=== PATIENT | female | born 1935 | race Caucasian/White ===

== ENCOUNTER 2017-01-01 22:17 | Emergency (ER) | payer MEDICARE, OTHER ==
[~2017-01-01] VITALS: Ht 160 cm; Wt 66.8 kg
[~2017-01-01 22:17] MED LIST: AMIT75TA2 PO; ASPI-973 PO; ATEN25TA PO; CHOL100045 PO; FURO40TA4 PO; GUAN1TAB16 PO; LANS30CA15 PO; LEVO125T6 PO; LEVO137T18 PO; LORA-302 PO; PRAV40TA PO; URSO300C8 PO
[2017-01-01 22:39] VITALS: BP 163/97; PULSE 94; RESP 20; O2SAT 97
--- NOTE | 2017-01-01 23:41 | ED.REPORT ---
HPI-General Illness Date of Service Jan 01, 2017 ED Provider: Duc Osuna MD An 81 year old female with a history of hypertension, hyperlipidemia and aortic aneurysm presents to the ED complaining of hypertension. The pt's hypertension medications were recently changed from Atenolol to Metoprolol, and now her blood pressures are higher than usual. She has been measuring these blood pressures regularly. The pt denies headache, shortness of breath, chest pain or other physical symptoms. Nursing Notes Stated Complaint: ELEVATED BLOOD PRESSURE Chief Complaint: General Complaint Nursing Notes Reviewed: Yes Allergies: Coded Allergies: donepezil (Verified Allergy, Severe, ANGIOEDEMA,DIARRHEA,BLISTERS,VESICLES , 01/01/17) lisinopril (Verified Allergy, Severe, Itching, 01/01/17) amoxicillin (Verified Allergy, Intermediate, itching, 01/01/17) opium (anthroposophic) (Verified Allergy, Intermediate, itching, 01/01/17) oxycodone (Verified Allergy, Intermediate, itching, 01/01/17) Bisphosphonates (Verified Allergy, Mild, ITCHING, 01/01/17) bupropion HCl (Verified Allergy, Mild, ITCHING, 01/01/17) Sulfa (Sulfonamide Antibiotics) (Verified Allergy, Unknown, UNKNOWN, ) buspirone (Verified Allergy, Unknown, ITCHING, 01/01/17) clonazepam (Verified Allergy, Unknown, UNKNOWN, 01/01/17) guaifenesin (Verified Allergy, Unknown, unknown, 01/01/17) piroxicam (Verified Allergy, Unknown, UNKNOWN, 01/01/17) Cephalexin Monohydrate (Verified Adverse Reaction, Severe, VOMITING, DIARRHEA, 01/01/17) alendronate sodium (Verified Adverse Reaction, Severe, ARTHRALGIAS, ) alprazolam (Verified Adverse Reaction, Severe, NO ALLERGY-MED INEFFECTIVE , 01/01/17) amlodipine (Verified Adverse Reaction, Severe, ITCHING, 01/01/17) atorvastatin (Verified Adverse Reaction, Severe, ABNL LFT'S, 01/01/17) diltiazem (Verified Adverse Reaction, Severe, INCREASED HR, 01/01/17) doxycycline (Verified Adverse Reaction, Severe, ITCHING, 01/01/17) ibuprofen (Verified Adverse Reaction, Severe, ITCHING, 01/01/17) nifedipine (Verified Adverse Reaction, Severe, INCREASED HR, 01/01/17) opium poppy (Verified Adverse Reaction, Severe, ITCHING W/OPIATES, 01/01/17 ) red dye (Verified Adverse Reaction, Severe, NO. 40 ITCHING, 01/01/17) verapamil (Verified Adverse Reaction, Severe, FATIGUE, 01/01/17) Uncoded Allergies: VITAMIN B COMPLEX (Adverse Reaction, Severe, ITCHING, 12/27/15) Scheduled Amitriptyline (Amitriptyline) 75 Mg Tablet 112.5 MG PO HS Aspirin (Aspirin) 81 Mg Tablet 81 MG PO DAILY Atenolol (Atenolol) 25 Mg Tablet 25 MG PO HS Cholecalciferol (Vitamin D3) (Vitamin D) 1,000 Unit Capsule 2,000 UNIT PO BID Furosemide (Furosemide) 40 Mg Tablet 20-40 MG PO DAILY Guanfacine HCl (Tenex) 1 Mg Tablet 0.5 MG PO HS Lansoprazole DR (Prevacid) 30 Mg Capsule 15 MG PO DAILY Levothyroxine (Levoxyl) 137 Mcg Tablet 137 MCG PO ,,,EBCK Levothyroxine (Levothyroxine) 125 Mcg Tablet 125 MCG PO ,, Pravastatin (Pravastatin) 40 Mg Tablet 40 MG PO DAILY Ursodiol (Actigall) 300 Mg Capsule 900 MG PO QAM Scheduled PRN Lorazepam (Ativan) 0.5 Mg Tablet 0.5 MG PO HS PRN PRN For Insomnia General Time Seen by MD: 23:37 Chief Complaint Other (Hypertension) Hx Obtained From: Patient Arrived By: Walk-in Sudden in Onset?: No Symptom Duration: Since onset Recent Healthcare: No recent hospitalization, Recent doctor visit Past Medical History Past Medical History Hx of aortic aneurysm hiatal hernia distant TIA early stages of Alzheimer's disease COPD pneumonia chronic constipation UTI depression anxiety arthritis primary biliary cirrhosis Reports: Hyperlipidemia, Hypertension Past Surgical History jaw reconstruction Abdominal surgery/colostomy thyroidectomy bilateral hip replacements Smoking History Never Smoker Social History Alcohol Use: "Social" Ambulatory Status Independent Review of Systems hypertension Full Review of Systems Respiratory: Denies: Non-productive cough, Shortness of breath Cardiovascular: Denies: Chest pain GI: Denies: Abdominal pain, Vomiting Musculoskeletal: Denies: Back pain, Neck pain Skin: Denies Rash Neurologic: Denies: Headache Complete sys rev & neg: except as marked. Physical Exam Vital Signs Vital Signs Date Time Temp Pulse Resp B/P Pulse Ox O2 Delivery O2 Flow Rate FiO2 01/01/17 23:48 88 16 138/86 98 Room Air 01/01/17 22:39 36.4 94 20 163/97 97 Room Air Initial VS: Reviewed General/Constitutional: Awake, Alert Head / Eyes: Atraumatic, Normocephalic, PERRL, EOMI ENT: Atraumatic, Airway patent, Mucous membranes moist Neck: Atraumatic, Supple, Full range of motion Respiratory / Chest: Atraumatic, Breath sounds NL, Breath sounds = bilat, No respiratory distress Cardiovascular: Heart rate NL, Regular rhythm, Heart sounds NL Abdomen: Atraumatic, Soft, Non-tender Back: Atraumatic, Full range of motion Upper Extremities Upper Extremity / MS: Atraumatic, Full range of motion Lower Extremity / Pelvis / MS: Atraumatic, Full range of motion Skin: Atraumatic, Color NL, No rash, Warm, Dry Neurologic: Oriented X3, Speech NL, No motor deficits, No sensory deficits Psychiatric: Affect NL, Mood NL Re-Eval/Medical Decision Med Decision/Clinical Course 81-year-old female with hypertension presents with mildly hypertensive numbers and no symptoms. Discussed the levels that should prompt an emergency attention, in addition to symptoms that should prompt concern, such as headache chest pain shortness of breath etc. She is discharged in stable condition. Source of Hx: Old records Time of Eval: 23:37 Patient Status: Condition improved Re-Evaluation/Progress Note: Pt informed of the diagnosis and plan for admission during the initial interview. The pt understands and agrees with the plan. All questions are addressed at this time. Counseled Regarding: Diagnosis, Need for follow-up, When/why to return to ED Discharge & Departure Primary Impression: Hypertension Hypertension type: unspecified secondary hypertension Qualified Code: I15.9 - Secondary hypertension, unspecified Additional Impression: Anxiety Disposition: Home Discharge Condition All VS Reviewed: Yes Condition: Stable Patient Instructions: Chronic Hypertension (ED) Additional Instructions: The numbers that you have recorded need to be taken up by your doctor. These are not acutely urgent blood pressures. If you get blood pressures above 210/ 110, or more particularly if you get symptoms associated, including headache, shortness of breath, chest pain, then return. Call your doctor tomorrow for follow-up next week. Do not change your medicines at this point, and do not double dose yourself. You can cause more damage taking too much blood pressure medicine than will happen from a brief period of hypertension. Referrals: Yareli Omer (PCP) Scribe Attestation Portions of this note were transcribed by Lupillo Jovel. I, Dr. Osuna personally performed the history, physical exam and medical decision-making; I reviewed and confirmed the accuracy of the information in the transcribed note. copies to: Yareli Omer Christopher W MD Jan 01, 2017 23:41 LUPILLO JOVEL Jan 01, 2017 23:51
[2017-01-01 23:48] VITALS: BP 138/86; PULSE 88; RESP 16; O2SAT 98
== END 2017-01-02 00:09 | disposition home or self-care (01) ==
LOC: SED 22:17
DX: I15.9 Secondary hypertension, unspecified (principal); F41.8 Other specified anxiety disorders; E78.5 Hyperlipidemia, unspecified; J44.9 Chronic obstructive pulmonary disease, unspecified; Z87.440 Personal history of urinary (tract) infections; Z86.73 Personal history of transient ischemic attack (TIA), and cerebral infarction without residual deficits; Z87.01 Personal history of pneumonia (recurrent); Z79.82 Long term (current) use of aspirin; Z88.1 Allergy status to other antibiotic agents; Z88.2 Allergy status to sulfonamides; Z88.5 Allergy status to narcotic agent; Z88.6 Allergy status to analgesic agent; Z88.8 Allergy status to other drugs, medicaments and biological substances